=== PATIENT | female | born 1980 | race Caucasian/White ===

== ENCOUNTER 2016-11-10 10:26 | Emergency (ER) | payer OTHER ==
[2016-11-10 10:34] VITALS: BP 136/83; TEMP 98.1; BMI 21.8
[2016-11-10 11:39] LABS: BASOPHILS % (AUTO) 0.4 % (0.0-3.0); EOSINOPHILS % (AUTO) 0.1 % (0.0-7.0); HEMATOCRIT 35.9 % (37.0-47.0); HEMOGLOBIN 12.4 g/dl (12.0-16.0); IMMATURE GRANULOCYTE % (AUTO) 0.3 % (0.0-5.0); LYMPHOCYTES # (AUTO) 1.3 K/uL (0.60-3.4); LYMPHOCYTES % (AUTO) 19.4 (10.0-50.0); MEAN CORPUSCULAR HEMOGLOBIN 30.7 pg (27.0-31.0); MEAN CORPUSCULAR HGB CONC 34.5 (31.8-35.4); MEAN CORPUSCULAR VOLUME 88.9 fl (81.0-99.0); MONOCYTES # (AUTO) 0.5 K/uL (0.4-2.0); MONOCYTES % (AUTO) 6.9 (0-10); NEUTROPHILS # (AUTO) 4.9 K/ul (2.0-6.9); NEUTROPHILS % (AUTO) 72.9; PLATELET COUNT 198 10^3/uL (140-440); RED BLOOD COUNT 4.04 10^6/ul (4.20-5.40)
[2016-11-10 11:46] LABS: SERUM PREGNANCY INTERNAL QC INTERNAL QC VALID
[2016-11-10 12:14] LABS: ALANINE AMINOTRANSFERASE 12 U/L (12-78); ALBUMIN 4.3 g/dL (3.4-5.0); ALBUMIN/GLOBULIN RATIO 1.59; ALKALINE PHOSPHATASE 39 U/L (42-98); ANION GAP 15.8; ASPARTATE AMINO TRANSFERASE 16 U/L (15-37); BLOOD UREA NITROGEN 12 mg/dL (7-18); BUN/CREATININE RATIO 16.21; CALCIUM 9.1 mg/dL (8.2-10.2); CARBON DIOXIDE 23 mmol/L (21-32); CHLORIDE 106 mmol/L (98-107); CREATINE KINASE 119 U/L; CREATININE 0.74 mg/dL (0.60-1.30); GLUCOSE 95 mg/dL (70-110); POTASSIUM 3.8 mmol/L (3.5-5.10); SODIUM 141 mmol/L (136-145)
--- NOTE | 2016-11-10 12:16 | DI ---
EXAM: Chest two views HISTORY: Pain COMPARISON: None TECHNIQUE: Two views of the chest were performed FINDINGS: The lungs are clear. There is no pleural effusion or pneumothorax. The heart is normal in size. The mediastinal contour is normal. There are median sternotomy wires. There are no acute abnormalities of the bones. IMPRESSION: No acute cardiopulmonary process.
[2016-11-10 12:17] LABS: CREATINE KINASE MB 1.8 ng/ml (0.0-3.6)
--- NOTE | 2016-11-10 12:28 | ED.PDOC ---
General ED Provider: Dr. JACINDA CHAMPAGNE Chief Complaint: Chest Pain Stated Complaint: chest pain Time Seen by Physician: 10:30 (has chest barillas 1 day ago none today) Mode of Arrival: Walk-In Information Source: Patient Exam Limitations: No limitations Primary Care Provider: CHELSEY HERRERA Nursing and Triage Documentation Reviewed and Agree: Yes (seen with staff at all times ) Cardiovascular Complaint Exam - Chest Pain Complaint/Exam Duration: 1 day ago and pain free since Initial Severity: Mild Current Severity: None Location: Reports: Midsternal Pain Radiates: Reports: None Aggravating: Reports: None Alleviating: Reports: None Associated Signs and Symptoms: Denies: Diaphoresis, Nausea, Vomiting, Fever, Palpitations, Cough, Hemoptysis, Back pain, Abdominal pain, Dizziness, Short of air, Calf pain, Calf swelling Related Surgical History: Reports: None History of Healthcare-Acquired Pneumonia: Reports: No AMI/ACS Risk Factors: Reports: None TAD Risk Factors: Reports: None Pulmonary Embolism Risk Factors: Reports: None Prior Care for this Complaint: No Recent Stress Test: No Recent Echo/LV Function: No JVD Present: No Subcutaneous Emphysema Present: No Diminshed Breath Sounds: No Reproducible Chest Wall Pain: No Bilateral Pulses Present: No Unequal Pulses Noted: No If Risk Factors for AMI/ACS Consider: EKG, Cardiac Enzymes Quality Indicators For Acute UT or Cardiac Chest Pain: EKG in 10min. Review of Systems - Review Of Systems Constitutional: Reports: No symptoms Eyes: Reports: No symptoms Ears, Nose, Mouth, Throat: Reports: No symptoms Respiratory: Reports: No symptoms Cardiac: Reports: Chest pain (resolvedx 1 day) GI: Reports: No symptoms : Reports: No symptoms Musculoskeletal: Reports: No symptoms Skin: Reports: No symptoms Neurological: Reports: No symptoms Endocrine: Reports: No symptoms Hematologic/Lymphatic: Reports: No symptoms All Other Systems: Reviewed and Negative Past Medical History - Past Medical History Previously Healthy: Yes Endocrine: Reports: None Cardiovascular: Reports: None Respiratory: Reports: None Hematological: Reports: None Gastrointestinal: Reports: None Genitourinary: Reports: None Neuro/Psych: Reports: None Musculoskeletal: Reports: None Cancer: Reports: None Last Menstrual Period: now - Surgical History General Surgical History: Reports: None - Family History Family History: Reports: None - Social History Smoking Status: Former smoker Hx Substance Use: No Alcohol Screening: None Physical Exam - Physical Exam Appearance: Well-appearing, No pain distress, Well-nourished Eyes: SERGIO, EOMI, Conjunctiva clear ENT: Ears normal, Nose normal, Oropharynx normal Respiratory: Airway patent, Breath sounds clear, Breath sounds equal, Respirations nonlabored Cardiovascular: RRR, Pulses normal, No rub, No murmur GI/: Soft, Nontender, No masses, Bowel sounds normal, No Organomegaly Musculoskeletal: Normal strength, ROM intact, No edema, No calf tenderness Skin: Warm, Dry, Normal color Neurological: Sensation intact, Motor intact, Reflexes intact, Cranial nerves intact, Alert, Oriented Psychiatric: Affect appropriate, Mood appropriate Interpretation - Radiology Interpretation Radiology Interpretation By: Radiologist Radiology Results: Negative Exam Interpreted: CXR - Box Feeder Rate: Normal Rhythm: Sinus Ectopy: None - EKG Interpretation Rate: Normal Rhythm: Sinus Ectopy: None [place]: NL ST Segment: Normal Critical Care Note - Critical Care Note Total Time (mins): 0 Course - Course Hematology/Chemistry: 11/10/16 11:37 11/10/16 11:27 Orders, Labs, Meds: Lab Review 11/10/16 11/10/16 11:27 11:37 WBC 6.70 RBC 4.04 L Hgb 12.4 Hct 35.9 L MCV 88.9 MCH 30.7 MCHC 34.5 RDW Coeff of [place] 11.9 Plt Count 198 Immature Gran % (Auto) 0.3 Neut % (Auto) 72.9 Lymph % (Auto) 19.4 Yell % (Auto) 6.9 Eos % (Auto) 0.1 Baso % (Auto) 0.4 Immature Gran # (Auto) 0.0 Neut # 4.9 Lymph # 1.3 Yell # 0.5 Eos # 0.0 Baso # 0.0 Sodium 141 Potassium 3.8 Chloride 106 Carbon Dioxide 23 Anion Gap 15.8 BUN 12 Creatinine 0.74 Estimated GFR (MDRD) 89.00 BUN/Creatinine Ratio 16.21 Glucose 95 Calcium 9.1 Total Bilirubin 2.60 H AST 16 ALT 12 Alkaline Phosphatase 39 L Total Creatine Kinase 119 CK-MB (CK-2) 1.8 CK-MB (CK-2) % 1.09053 Troponin I < 0.0100 Total Protein 7.0 Albumin 4.3 Globulin 2.7 Albumin/Globulin Ratio 1.59 Serum , Qual Negative Orders Category Date Time Status EKG-(ED ONLY) Stat CARDIO 11/10/16 11:10 Completed CBC W/ AUTO DIFF Stat LAB 11/10/16 11:37 Completed COMPREHENSIVE METABOLIC PANEL Stat LAB 11/10/16 11:27 Completed CREATINE KINASE Stat LAB 11/10/16 11:27 Completed SERUM Stat LAB 11/10/16 11:27 Completed TROPONIN I Stat LAB 11/10/16 11:27 Completed CHEST, 2 VIEWS PA & LAT Stat RADS 11/10/16 11:10 Completed Vital Signs: Temp Pulse Resp BP Pulse Ox 11/10/16 10:27 98.1 F 84 16 136/83 99 KRISTIN Risk Score KRISTIN Risk Score: Risk Score Odds of by 30D 0 0.1 (0.1-0.2) 1 0.3 (0.2-0.3) 2 0.4 (0.3-0.5) 3 0.7 (0.6-0.9) 4 1.2 (1.0-1.5) 5 2.2 (1.9-2.6) 6 3.0 (2.5-3.6) 7 4.8 (3.8-6.1) Departure - Departure Time of Disposition: 12:28 Disposition: HOME SELF-CARE Discharge Problem: Chest pain Instructions: Chest Pain (ED), Noncardiac Chest Pain (ED) Condition: Good Pt referred to PMD for follow-up: Yes Additional Instructions: Please call your Family Physician as soon as possible to schedule a follow-up appointment. Allergies/Adverse Reactions: Allergies Penicillins Adverse Reaction (Verified 11/10/16 10:36) Home Medications: Ambulatory Orders Multivits,Ca,Minerals/Iron/FA [Women's Daily Caplet] 1 each PO DAILY 11/10/16
== END 2016-11-10 12:59 | disposition home or self-care (01) ==
LOC: ED 10:26
DX: R07.9 Chest pain, unspecified (principal)
CPT/HCPCS: 36415; 80053; 82550; 82553; 84484; 84703; 85025; 93005; 93010; 99283